=== PATIENT | male | born 1980 | race American Indian/Alaskan Native ===

== ENCOUNTER 2020-11-23 09:44 | Emergency (ER) | payer SELFPAY ==
[2020-11-23 09:52] VITALS: BP 105/59
--- NOTE | 2020-11-23 10:26 | XRay Report ---
CHEST 2 VIEWS INDICATION / CLINICAL INFORMATION: SOB. COMPARISON: None available. FINDINGS: SUPPORT DEVICES: None. HEART / MEDIASTINUM: The heart size and pulmonary vasculature are normal. LUNGS / PLEURA: No significant pulmonary or pleural abnormality. No pneumothorax. ADDITIONAL FINDINGS: No significant additional findings. IMPRESSION: No acute findings. Signer Name: Robert Spain MD Signed: 11/23/2020 10:22 AM Workstation Name: [id number]
[2020-11-23] MEDS ORDERED: IBUPROFEN 800 MG TAB PO ONE (15:37)
--- NOTE | 2020-11-23 15:41 | Emergency Department Report ---
- General Chief Complaint: Upper Respiratory Infection Stated Complaint: MARIO/COUGH Time Seen by Provider: 11/23/20 15:36 Source: patient Mode of arrival: Wheelchair Limitations: No Limitations - History of Present Illness Initial Comments: This is a 40-year-old male complaining of cough headache loss of taste and smell x3 days he states that when he coughs his chest hurts he has been using TheraFlu with no relief he denies any other past medical history. MD Complaint: cough, other (Headache) -: days(s) (3) Improves With: nothing Worsens With: nothing Associated Symptoms: cough, chest pain (With cough only). denies: fever, chills, shortness of breath, abdominal pain, vomiting, diarrhea Treatments Prior to Arrival: none - Related Data Allergies Allergy/AdvReac Type Severity Reaction Status Date / Time No Known Allergies Allergy Unverified 11/23/20 09:52 ED Review of Systems ROS: Stated complaint: MARIO/COUGH Other details as noted in HPI Comment: All other systems reviewed and negative Constitutional: denies: chills, fever Eyes: denies: eye pain ENT: denies: ear pain, throat pain, dental pain, hearing loss Respiratory: cough Cardiovascular: chest pain (His chest hurts when he coughs). denies: palpitations, dyspnea on exertion, edema, syncope, paroxysmal nocturnal dyspnea Endocrine: no symptoms reported ( ) Gastrointestinal: denies: abdominal pain, nausea, vomiting, diarrhea, constipation Musculoskeletal: denies: as per HPI, back pain, joint swelling, arthralgia Neurological: denies: headache, weakness, numbness, paresthesias, confusion, abnormal gait Psychiatric: denies: anxiety, depression ED Past Medical Hx - Past Medical History Previous Medical History?: No - Surgical History Past Surgical History?: No ED Physical Exam - General Limitations: No Limitations General appearance: alert, in no apparent distress - Head Head exam: Present: atraumatic - Eye Eye exam: Present: normal appearance - ENT ENT exam: Present: normal exam, normal orophraynx, mucous membranes moist, TM's normal bilaterally - Neck Neck exam: Present: normal inspection. Absent: lymphadenopathy - Respiratory Respiratory exam: Present: normal lung sounds bilaterally. Absent: respiratory distress, chest wall tenderness - Cardiovascular Cardiovascular Exam: Present: regular rate, normal heart sounds - GI/Abdominal GI/Abdominal exam: Present: soft - Extremities Exam Extremities exam: Present: normal inspection, normal capillary refill - Back Exam Back exam: Present: normal inspection - Neurological Exam Neurological exam: Present: alert, oriented X3 - Psychiatric Psychiatric exam: Present: normal affect - Skin Skin exam: Present: warm, dry, intact, normal color ED Course Vital Signs 11/23/20 09:52 Pulse Rate 55 L Respiratory 18 Rate Blood Pressure 105/59 [Right] O2 Sat by Pulse 100 Oximetry - Reevaluation(s) Reevaluation #1: 11/23/20 18:17 Patient in no distress decreased pain I observed him ambulating around the emergency room doing well ED Medical Decision Making - Radiology Data Radiology results: report reviewed Chest x-ray FINDINGS: SUPPORT DEVICES: None. HEART / MEDIASTINUM: The heart size and pulmonary vasculature are normal. LUNGS / PLEURA: No significant pulmonary or pleural abnormality. No pne umothorax. ADDITIONAL FINDINGS: No significant additional findings. IMPRESSION: No acute findings. - Medical Decision Making 40-year-old male with a 3-day complaint of cough, his chest hurts when he coughs lost of taste and smell headache using [id number] medication with no relief. Chest x-ray with no acute findings vital signs stable oxygen saturation 100% on room air. Influenza AMB is negative. I counseled patient regarding getting a Covid test as soon as possible. He is giving pamphlet of locations to get tested patient in no acute distress Critical Care Time: No Critical care attestation.: If time is entered above; I have spent that time in minutes in the direct care of this critically ill patient, excluding procedure time. ED Disposition Clinical Impression: Viral respiratory illness Disposition: DC-01 TO HOME OR SELFCARE Is pt being admited?: No Does the pt Need Aspirin: No Condition: Stable Instructions: Viral Illness, Adult, Antibiotic Resistance Additional Instructions: Continue to rest increase oral hydration it is okay for you to take Advil or Tylenol as directed by package insert for pain or headache. Your influenza test was negative you do not have influenza a or B. If symptoms continue or worsening please consider getting a Covid 19 test. Refer to the pamphlet that has locations where you can go get tested. Follow-up with your primary care doctor or Dr. Guardado Referrals: PRIMARY CARE, [Primary Care Provider] - 3-5 Days Forms: Work/School Release Form(ED) Time of Disposition: 18:47
== END 2020-11-23 19:06 | disposition home or self-care (01) ==
LOC: ED 09:44
DX: J98.8 Other specified respiratory disorders (principal)
CPT/HCPCS: 71046; 87400